=== PATIENT | female | born 1970 | race Caucasian/White ===

== ENCOUNTER 2017-02-20 05:51 | Inpatient (IN) | payer OTHER ==
[~2017-02-20] VITALS: Ht 149.9 cm; Wt 61.7 kg
[2017-02-20] VITALS (41 sets, daily range): BP systolic 93–137; BP diastolic 44–94; PULSE 76–102; RESP 12–19; Ht 149.9 cm; Wt 61.7 kg
[2017-02-20] MEDS ORDERED: CEFAZOLIN 2 GM/50 ML (PMX) 50 ML IVPB ONE (06:15)
[2017-02-20] MEDS ORDERED: LACTATED RINGER'S 1,000 ML IV* SCH (06:15)
[2017-02-20] MEDS ORDERED: LIDOCAINE 2% (SDV) 5 ML INJ ONE (06:51)
[2017-02-20] MEDS ORDERED: ROCURONIUM 50 MG INJ ONE (06:51)
[2017-02-20] MEDS ORDERED: MIDAZOLAM 1 MG/ML 2 ML INJ ONE ×2 (06:51→07:26)
[2017-02-20] MEDS ORDERED: PROPOFOL 20 ML ONE (06:51)
[2017-02-20] MEDS ORDERED: CEFAZOLIN 1 GM INJ ONE (06:54)
[2017-02-20] MEDS ORDERED: ALBUMIN HUMAN 5% 250 ML ONE (06:59)
[2017-02-20] MEDS ORDERED: FLUMAZENIL 0.5 MG INJ ONE (07:25)
[2017-02-20] MEDS ORDERED: morphine SULFATE/PF (10 MG/10 ML) INJ ONE (07:25)
[2017-02-20] MEDS ORDERED: METOCLOPRAMIDE 10 MG INJ ONE (07:26)
--- NOTE | 2017-02-20 07:33 | HP ---
Date/Time of Note Date/Time of Note DATE: 02/20/17 TIME: 07:28 Assessment/Plan VTE Prophylaxis VTE Prophylaxis Intervention: SCD's Lines/Catheters IV Catheter Type (from [facility]): Saline Lock Assessment/Plan Chief Complaint/Hosp Course 16 week size Fibroid Uterus Menorrhagia H/o Anemia Problems: Assessment/Plan Exploratory Laparotomy URI, Bilateral Salpingectomies Possible BSO Informed consent obtained HPI/ROS Admit Date/Time Admit Date/Time Feb 20, 2017 at 05:51 Hx of Present Illness patient with fibroid uterus and menorrhagia desires to have definitive surgery with hysterectomy. options of removing or retaining the ovaries d/w patient. the risk of future ovarian cancer which is 1 in 60 women d/w patient. she desires to retain her ovaries. Surgical risks including infection, bleeding, damage to other organs, blood transfusion d/w patient. Informed consent obtained. PMH: None PSH: BTL NKDA Meds: Fe Review of Systems: Constitutional: Denies nausea, vomiting, Fever, Chills, weight loss Eyes: denies pain, discharge or redness Nose: denies pain or bleeding Respiratory: denies SOB, cough or wheezing Cardiovascular: denies chest pain, palpitations or lightheadedness Gastrointestinal: Denies nausea, vomiting, blood in stool Genitourinary: Denies hematuria, dysuria, or flank pain Musculoskeletal: Denies joint pain or swelling Skin: Denies rash, erythema or laceration Neuro: Denies confusion, seizure, headache or diziness Endocrine: Denies excessive urination or drinking PMH/Family/Social Family History Significant Family History: no pertinent family hx Social History Alcohol Use: none Smoking Status: Never smoker Drug Use: none Exam/Review of Systems Vital Signs Vitals Vital Signs Date Time Temp Pulse Resp B/P Pulse Ox O2 Delivery O2 Flow Rate FiO2 02/20/17 06:16 97.4 87 18 137/53 98 Room Air Exam Constitutional: alert, oriented, well developed Psych: nl mood/affect, no complaints Head: atraumatic, normocephalic Eyes: EOMI, PERRL, fundi, disc, icteric, nl conjunctiva, nl lids, nl sclera, other ENMT: nl external ears & nose, nl lips & teeth, nl nasal mucosa & septum Neck: non-tender, supple Respiratory: clear to auscultation, normal air movement Cardiovascular: nl pulses, regular rate and rhythm Gastrointestinal: nl liver, spleen, non-tender, soft Musculoskeletal: nl extremities to inspection Extremities: normal pulses Neurological: TRANSPORT TRUCK DRIVER II-XII intact, nl mental status, nl speech, nl strength Skin: nl turgor, No rash or lesions Lymph: nl lymph nodes Medications Medications Current Medications Lactated Ringer's (Lr) 1,000 ml @ 125 mls/hr Q8H IV* ; Start 02/20/17 at 06:15 ; Stop 02/20/17 at 14:14 FORREST VILCHIS MD Feb 20, 2017 07:33
[2017-02-20 07:43] LABS: CALCIUM 8.9 mg/dl (8.4-10.2); CREATININE 0.66 mg/dl (0.44-1.00)
[2017-02-20] MEDS ORDERED: NALOXONE (0.4 MG/ML) INJ IV PRN ×2 (08:00→08:30)
[2017-02-20] MEDS ORDERED: ONDANSETRON 4 MG INJ IV PRN ×3 (08:00→08:30)
[2017-02-20] MEDS ORDERED: HYDROmorphONE 0.2 MG/ML PCA IV SCH (08:00)
[2017-02-20] MEDS ORDERED: DEXAMETHASONE 4 MG/ML 1 ML INJ ONE (08:12)
[2017-02-20] MEDS ORDERED: MEPERIDINE 25 MG INJ IV PRN (08:30)
[2017-02-20] MEDS ORDERED: DIPHENHYDRAMINE 50 MG INJ IV PRN ×2 (08:30)
[2017-02-20] MEDS ORDERED: HYDROmorphONE 0.5 MG/0.5 ML SYG IV PRN ×2 (08:30)
[2017-02-20] MEDS ORDERED: KETOROLAC 30 MG INJ IV PRN (08:30)
[2017-02-20] MEDS ORDERED: HYDROmorphONE (0.2 MG/ML) 10ML SYG IV PRN ×3 (08:30)
[2017-02-20] MEDS ORDERED: HYDROmorphONE 1 MG/ML SYG IV PRN (08:30)
[2017-02-20] MEDS ORDERED: METOCLOPRAMIDE 10 MG INJ IV PRN (08:30)
[2017-02-20] MEDS ORDERED: EPHEDrine SULFATE 50 MG/5 ML SYG ONE (09:21)
[2017-02-20] MEDS ORDERED: GLYCOPYRROLATE 0.4 MG INJ ONE (09:21)
[2017-02-20] MEDS ORDERED: KETOROLAC 30 MG INJ ONE (09:21)
[2017-02-20] MEDS ORDERED: NEOSTIGMINE 3 MG/3 ML SYRINGE ONE (09:21)
--- NOTE | 2017-02-20 09:47 | OPR ---
Date/Time of Note Date/Time of Note DATE: 02/20/17 TIME: 09:37 Operative Report Free Text/Dictation DATE OF OPERATION: 02/20/2017 PREOPERATIVE DIAGNOSIS: menorrhagia, 16 week size Fibroid Uterus, h/o severe anemia POSTOPERATIVE DIAGNOSIS: same PROCEDURE PERFORMED: Exploratory laparotomy, total abdominal hysterectomy SURGEON: Forrest Navarro MD PARARESCUE MANAGER: Keegan Gardner MD ESTIMATED BLOOD LOSS: 300 mL. COMPLICATIONS: None. FINDINGS: There were dense adhesions from the tubes to the ovaries. 16 weeks size uterus with several fibroids. one fibroid was in left broad ligament. INFORMED CONSENT: Please see my preop H and P for the consent process. The patient desires to retain her ovaries despite being at relative risk of future ovarian cancer which is 1 in 60 women. DESCRIPTION OF PROCEDURE: She was taken to the operating room. General anesthesia was induced. She was prepped and draped in the usual sterile fashion. Vaginal prep and abdominal prep was done. Camacho catheter was inserted. She was in the supine position. After she was prepped and draped, surgical time out was done, surgery and patient was identified. Then, we proceeded and made a Pfannenstiel skin incision. Incision was taken down in layers. The fascia was cut, undermined, from the underlying muscle using sharp and blunt dissection. All the bleeders were cauterized. We had to proceed with lysis of adhesions from the omentum to the anterior abdominal wall to get access to our surgical site, at all times protecting the bowel. We took down the adhesions and then an O'Arben-O'Nicole retractor was placed, 3 moist laparotomy packs were used to pack the bowel away. Two large Pian were used to grab the uterus. The right round ligament was coagulated twice using the LigaSure and then cut. Same procedure on the contralateral side. Then, we proceeded with developing a bladder flap using a Marlon and bladder was pushed down. A window was developed in the round ligament and the utero-ovarian pedicle on the right side was ligated using the LigaSure twice and then cut. There was no bleeding. Same procedure was done on contralateral side. Bladder flap was pushed further down and the right uterine artery pedicle was clamped, cut, suture ligated and the left side was clamped, cut, suture ligated. Clamping the uterine artery on the left side was difficult due to large left broad ligament fibroid. this fibroid was dissected off, but caused some bleeding from the retroperitoneal area. The bladder flap was pushed further down and the cardinal ligaments were clamped, cut, suture ligated using straight Toro clamps and the uterosacrals were clamped, cut, suture ligated. The vagina was entered using a knife and using Gaye scissors, the specimen was cut and sent to pathology. The vaginal apex on both sides was suture ligated and then interrupted sutures were used to place figure- of-eight sutures to close the cuff. there was some bleeding from the retroperitoneal space in the left side due to earlier removal of the fibroid. 2- 0 Chromic on SH was used to control the bleeding reassuring that the ureter was not harmed. We irrigated and then we filled the pelvis using warm water and there was absolutely no evidence of any bleeding from any our pedicles. Each pedicle was evaluated individually. The vaginal cuff was evaluated very carefully and there was no bleeding. At this time, the posterior peritoneum was closed using a 2-0 Vicryl and all laparotomy packs were removed. O'Arben-O'Nicole removed. I explored the abdomen, there were no laparotomy packs left inside. The peritoneum was closed using 2-0 Vicryl. The rectus muscles reapproximated using 2-0 Vicryl. Rectus muscles, rectus fascia were evaluated, all bleeders cauterized. Rectus fascia was closed using #1 Vicryl. Subcutaneous tissue was cleaned, irrigated, all bleeders cauterized and closed using 3-0 plain and then the skin closed using 4- 0 Monocryl in a subcuticular fashion. All counts were correct. The patient tolerated the procedure well. Procedure Date: Feb 20, 2017 Preoperative Diagnosis menorrhagia, 16 week size Fibroid Uterus, h/o severe anemia Postoperative Diagnosis menorrhagia, 16 week size Fibroid Uterus, h/o severe anemia Operation/Procedure Performed Exploratory laparotomy, total abdominal hysterectomy Surgeon see signature line Primary Teaching Assistant Dr. MS Gardner Anesthesia Type: general Estimated Blood Loss: other (300 ml) Transfusion none Specimen uterus and cervix Grafts/Implants none Complications none Pt Condition Post Procedure: stable Disposition: PACU Procedure Description see above FORREST NAVARRO MD Feb 20, 2017 09:46
[2017-02-20] MEDS: CEFAZOLIN 1 GM/50 ML (PMX) 50 ML IVPB SCH ×2 (15:23→23:45)
[2017-02-21 02:49] VITALS: BP 106/55; RESP 19
[2017-02-21 06:09] LABS: BASOPHILS % 0.2 % (0.0-2.0); EOSINOPHILS % 0.1 % (0.0-7.0); HEMOGLOBIN 10.5 g/dl (12.0-16.0); LYMPHOCYTES # 2.3 10^3/ul (0.8-2.9); LYMPHOCYTES % 21.5 % (15.0-51.0); MEAN CORPUSCULAR HEMOGLOBIN 26.9 pg (29.0-33.0); MEAN CORPUSCULAR HGB CONC 31.8 g/dl (32.0-37.0); MEAN CORPUSCULAR VOLUME 84.6 fl (82.0-101.0); MEAN PLATELET VOLUME 10.5 fl (7.4-10.4); MONOCYTE # 1.2 10^3/ul (0.3-0.9); MONOCYTES % 11.2 % (0.0-11.0); NEUTROPHIL # 7.2 10^3/ul (1.6-7.5); NEUTROPHILS % 66.5 % (39.0-77.0); PLATELET COUNT 286 10^3/UL (140-415); RED CELL DISTRIBUTION WIDTH 13.4 % (11.5-14.5); WHITE BLOOD COUNT 10.9 10^3/ul (4.8-10.8)
[2017-02-21 06:37] LABS: CALCIUM 8.4 mg/dl (8.4-10.2); CREATININE 0.63 mg/dl (0.44-1.00); POTASSIUM 4.3 mmol/L (3.5-5.1)
[2017-02-21 07:36] VITALS: BP 106/58; RESP 18
[2017-02-21] MEDS: HYDROCODONE/APAP (5/325) TAB PO PRN ×3 (09:00→19:39)
--- NOTE | 2017-02-21 09:42 | PN ---
Date/Time of Note Date/Time of Note DATE: 02/21/17 TIME: 09:40 Assessment/Plan VTE Prophylaxis VTE Prophylaxis Intervention: ambulation Lines/Catheters IV Catheter Type (from Nrsg): Saline Lock Urinary Cath still in place: No Subjective 24 Hr Interval Summary Free Text/Dictation anesthesia note: A 46 year female s/p hysterectomy under spinal duramorph, [place] POD#1 is doing well , no N/V. itching, back pain or irritation, headache, pain is controlled. care per surgery Exam/Review of Systems Vital Signs Vitals Vital Signs Date Time Temp Pulse Resp B/P Pulse Ox O2 Delivery O2 Flow Rate FiO2 02/21/17 07:36 97.7 89 18 106/58 98 02/20/17 12:30 Room Air 02/20/17 09:35 8.0 Intake and Output 02/20/17 02/20/17 02/21/17 15:00 23:00 07:00 Intake Total 1600 ml 50 ml 690 ml Output Total 500 ml 450 ml 2350 ml Balance 1100 ml -400 ml -1660 ml Results Result Diagram: 02/21/17 0422 02/21/17 0422 Results 24 hrs Laboratory Tests Test 02/21/17 04:22 White Blood Count 10.9 H Red Blood Count 3.90 L Hemoglobin 10.5 L Hematocrit 33.0 L Mean Corpuscular Volume 84.6 Mean Corpuscular Hemoglobin 26.9 L Mean Corpuscular Hemoglobin Concent 31.8 L Red Cell Distribution Width 13.4 Platelet Count 286 Mean Platelet Volume 10.5 H Neutrophils % 66.5 Lymphocytes % 21.5 Monocytes % 11.2 H Eosinophils % 0.1 Basophils % 0.2 Nucleated Red Blood Cells % 0.0 Neutrophils # 7.2 Lymphocytes # 2.3 Monocytes # 1.2 H Eosinophils # 0.0 Basophils # 0.0 Nucleated Red Blood Cells # 0.0 Sodium Level 138 Potassium Level 4.3 Chloride Level 104 Carbon Dioxide Level 26 Anion Gap 12 Blood Urea Nitrogen 15 Creatinine 0.63 Glucose Level 95 Calcium Level 8.4 Medications Medications Current Medications Acetaminophen/ Hydrocodone Bitart ([place] (5/325)) 1 tab Q4H PRN PO PAIN LEVEL 6 -10 Last administered on 02/21/17t 09:00; Admin Dose 1 TAB; Start 02/20/17 at 08:00 Ondansetron HCl (Zofran Inj) 4 mg Q6H PRN IV NAUSEA AND/OR VOMITING Last administered on 02/20/17t 16:19; Admin Dose 4 MG; Start 02/20/17 at 08:00 Naloxone HCl (Narcan) 0.2 mg PRN PRN IV DECREASED REPIRATORY RATE; Start 02/20 at 08:00 Miscellaneous Information 1. 24 hours after ESTIMATOR AND DRAFTER SUPERVISOR st... ESTIMATOR AND DRAFTER SUPERVISOR IV ; Start 02/20/17 at 08:00 HESHAM COELHO MD Feb 21, 2017 09:42
[2017-02-21 13:56] VITALS: BP 128/60; RESP 18
--- NOTE | 2017-02-21 17:23 | QN ---
Documentation Comment POD # 1 s/p URI S/ denies problems AF VSS Abdomen: soft, appropriate tender Incision: no sign of infection Doing Well plan: continue current care FORREST VILCHIS MD Feb 21, 2017 17:23
[2017-02-21 20:08] VITALS: BP 135/65; RESP 18
[2017-02-22 02:59] VITALS: BP 128/61; RESP 18
[2017-02-22] MEDS: HYDROCODONE/APAP (5/325) TAB PO PRN ×2 (04:41→14:41)
[2017-02-22 07:28] VITALS: BP 126/63; RESP 18
--- NOTE | 2017-02-22 11:44 | PN ---
Date/Time of Note Date/Time of Note DATE: 02/22/17 TIME: 11:38 Assessment/Plan Lines/Catheters IV Catheter Type (from Nrs): Saline Lock Camacho in Place (from Nrs): No Subjective 24 Hr Interval Summary February 22, 2017 Post abdominal hysterectomy date 2 This 47 years old lady had a total abdominal hysterectomy due to multiple and fairly large fibroid tumors. Today she is afebrile chest is clear Abdomen is soft Incision is clean No calf tenderness She is ambulatory Additional Comments Laboratory Tests Test 02/20/17 06:50 02/21/17 04:22 02/22/17 05:37 Sodium Level 143mmol/L 138mmol/L Potassium Level 4.0mmol/L 4.3mmol/L Chloride Level 108mmol/L 104mmol/L Carbon Dioxide Level 25mmol/L 26mmol/L Anion Gap 14 12 Blood Urea Nitrogen 15mg/dl 15mg/dl Creatinine 0.66mg/dl 0.63mg/dl Glucose Level 96mg/dl 95mg/dl Calcium Level 8.9mg/dl 8.4mg/dl White Blood Count 10.910^3/ul Red Blood Count 3.9010^6/ul Hemoglobin 10.5g/dl Hematocrit 33.0% Mean Corpuscular Volume 84.6fl Mean Corpuscular Hemoglobin 26.9pg Mean Corpuscular Hemoglobin Concent 31.8g/dl Red Cell Distribution Width 13.4% Platelet Count 07671^3/UL Mean Platelet Volume 10.5fl Neutrophils % 66.5% Lymphocytes % 21.5% Monocytes % 11.2% Eosinophils % 0.1% Basophils % 0.2% Nucleated Red Blood Cells % 0.0/100WBC Neutrophils # 7.210^3/ul Lymphocytes # 2.310^3/ul Monocytes # 1.210^3/ul Eosinophils # 0.010^3/ul Basophils # 0.010^3/ul Nucleated Red Blood Cells # 0.010^3/ul Lab Scanned Report [id number] Current Medications Medications (Trade) Dose Ordered Sig/Farzana Route PRN Reason Start Time Stop Time Status Last Admin Dose Admin Cefazolin Sodium/ Dextrose 50 ml @ 100 mls/hr ONCE ONCE IVPB 02/20/17 06:15 02/20/17 06:44 DC Lactated Ringer's (Lr) 1,000 ml @ 125 mls/hr Q8H IV* 02/20/17 06:15 02/20/17 14:14 DC Lidocaine 100 mg 100 mg STK-MED ONCE .ROUTE 02/20/17 06:51 02/20/17 06:52 DC Propofol (Diprivan) 20 ml @ ud STK-MED ONCE .ROUTE 02/20/17 06:51 02/20/17 06:52 DC Rocuronium [place] 50 mg 50 mg STK-MED ONCE .ROUTE 02/20/17 06:51 02/20/17 06:52 DC Fentanyl (Sublimaze) 5 ml @ ud STK-MED ONCE .ROUTE 02/20/17 06:51 02/20/17 06:52 DC Midazolam HCl (Versed) 2 mg STK-MED ONCE .ROUTE 02/20/17 06:51 02/20/17 06:52 DC Cefazolin Sodium 1 gm 1 gm STK-MED ONCE .ROUTE 02/20/17 06:54 02/20/17 06:55 DC Albumin Human 250 ml @ ud STK-MED ONCE .ROUTE 02/20/17 06:59 02/20/17 07:00 DC Morphine Sulfate (Duramorph) 10 mg STK-MED ONCE .ROUTE 02/20/17 07:25 02/20/17 07:26 DC Flumazenil (Romazicon) 0.5 mg STK-MED ONCE .ROUTE 02/20/17 07:25 02/20/17 07:26 DC Midazolam HCl (Versed) 2 mg STK-MED ONCE .ROUTE 02/20/17 07:26 02/20/17 07:27 DC Metoclopramide HCl 10 mg 10 mg STK-MED ONCE .ROUTE 02/20/17 07:26 02/20/17 07:27 DC Cefazolin Sodium (Ancef 1 Gm/50 ml (Pmx)) 50 ml @ 100 mls/hr Q8H IVPB 02/20/17 08:00 02/21/17 00:29 DC 02/20/17 23:45 Acetaminophen/ Hydrocodone Bitart ([place] (5/325)) 1 tab Q4H PRN PO PAIN LEVEL 6-10 02/20/17 08:00 02/22/17 04:41 Ondansetron HCl (Zofran Inj) 4 mg Q6H PRN IV NAUSEA AND/OR VOMITING 02/20/17 08:00 02/20/17 16:19 Naloxone HCl (Narcan) 0.2 mg PRN PRN IV DECREASED REPIRATORY RATE 02/20/17 08:00 Hydromorphone HCl (Dilaudid MARKETING INFORMATION ANALYST) Q4PCA IV 02/20/17 08:00 02/20/17 11:36 DC Miscellaneous Information 1. 24 hours after MARKETING INFORMATION ANALYST st... MARKETING INFORMATION ANALYST IV 02/20/17 08:00 Dexamethasone (Decadron) 4 mg STK-MED ONCE .ROUTE 02/20/17 08:12 02/20/17 08:13 DC Hydromorphone HCl (Dilaudid (Rec)) 0.2 mg PACU ORDER PRN IV MILD PAIN LEVEL 1-3 02/20/17 08:30 02/20/17 13:00 DC Hydromorphone HCl (Dilaudid (Rec)) 0.4 mg PACU ORDER PRN IV MODERATE PAIN LEVEL 4-6 02/20/17 08:30 02/20/17 13:00 DC Hydromorphone HCl (Dilaudid (Rec)) 0.6 mg PACU ORDER PRN IV SEVERE PAIN LEVEL 7-10 02/20/17 08:30 02/20/17 13:00 DC Ondansetron HCl (Zofran Inj) 4 mg PACU ORDER PRN IV NAUSEA AND/OR VOMITING 02/20/17 08:30 02/20/17 13:00 DC Metoclopramide HCl (Reglan) 10 mg PACU ORDER PRN IV NAUSEA AND/OR VOMITING 02/20/17 08:30 02/20/17 13:00 DC Meperidine HCl (Demerol) 25 mg PACU ORDER PRN IV POST-OP RIGORS 02/20/17 08:30 02/20/17 13:00 DC Diphenhydramine HCl (Benadryl) 25 mg PACU ORDER PRN IV PRURITUS 02/20/17 08:30 02/20/17 13:00 DC Glycopyrrolate (Robinul) 0.4 mg STK-MED ONCE .ROUTE 02/20/17 09:21 02/20/17 09:22 DC Ephedrine Sulfate 50 mg STK-MED ONCE .ROUTE 02/20/17 09:21 02/20/17 09:22 DC Neostigmine Methylsulfate (Neostigmine) 3 mg STK-MED ONCE .ROUTE 02/20/17 09:21 02/20/17 09:22 DC Ketorolac Tromethamine (Toradol) 30 mg STK-MED ONCE .ROUTE 02/20/17 09:21 02/20/17 09:22 DC Naloxone HCl (Narcan) 0.1 mg Q2M PRN IV FOR RESP RATE 8 OR LESS 02/20/17 08:30 02/21/17 08:29 DC Ketorolac Tromethamine (Toradol) 30 mg Q6H PRN IV PAIN 02/20/17 08:30 02/21/17 08:29 DC Hydromorphone HCl (Dilaudid) 1 mg Q3H PRN IV BREAKTHROUGH PAIN 02/20/17 08:30 02/21/17 08:29 DC Hydromorphone HCl (Dilaudid) 0.2 mg Q3H PRN IV PAIN LEVEL 1-5 02/20/17 08:30 02/21/17 08:29 DC Hydromorphone HCl (Dilaudid) 0.4 mg Q3H PRN IV PAIN LEVEL 6-10 02/20/17 08:30 02/21/17 08:29 DC Diphenhydramine HCl (Benadryl) 25 mg Q6H PRN IV ITCHING 02/20/17 08:30 02/21/17 08:29 DC Ondansetron HCl (Zofran Inj) 4 mg Q6H PRN IV NAUSEA AND/OR VOMITING 02/20/17 08:30 02/21/17 08:29 DC She is tolerating food and will advance her diet to regular No bowel movement yet but will give laxative. Exam/Review of Systems Vital Signs Vitals Vital Signs Date Time Temp Pulse Resp B/P Pulse Ox O2 Delivery O2 Flow Rate FiO2 02/22/17 07:28 98.2 89 18 126/63 96 02/20/17 12:30 Room Air 02/20/17 09:35 8.0 Intake and Output 02/21/17 02/21/17 02/22/17 15:00 23:00 07:00 Intake Total 300 ml Balance 300 ml Results Result Diagram: 02/21/1742102/21/17421 MARTIN DUNLAP MD Feb 22, 2017 11:44
[2017-02-22 14:24] VITALS: BP 125/68; RESP 18
[2017-02-22 20:34] VITALS: BP 121/63; RESP 18
[2017-02-23 02:51] VITALS: BP 129/64; RESP 18
[2017-02-23] MEDS: HYDROCODONE/APAP (5/325) TAB PO PRN (06:09)
[2017-02-23 08:00] VITALS: BP 116/58; RESP 19
[2017-02-23] MEDS ORDERED: BISACODYL 10 MG SUPP PR ONE (11:30)
[2017-02-23] MEDS ORDERED: BISACODYL (EC) 5 MG TAB PO ONE (11:30)
[2017-02-23 14:00] VITALS: BP 126/67; RESP 19
--- NOTE | 2017-02-24 01:59 | DS ---
DATE OF ADMISSION: 02/20/2017 DATE OF DISCHARGE: 02/23/2017 FINAL DIAGNOSIS: Status post total abdominal hysterectomy. HISTORY AND HOSPITAL COURSE: The patient is a 46-year-old who presented on 02/20/2017 for explorato ry laparotomy and a URI which she underwent without any complications. EBL was 300. Patient histor y of fibroids and severe menorrhagia and severe anemia. The patient is postop day #3 now doing well , tolerating p.o., is ambulating, is passing gas, has had a bowel movement. Hemoglobin postoperativ e was 10.5. VITAL SIGNS: All within normal limits. HEART: Regular rhythm. CHEST: Clear to auscultation bilaterally. ABDOMEN: Soft, nontender. No rebound or guarding. EXTREMITIES: There is no edema. SKIN: Wound is clean, dry and intact. DISPOSITION: The patient will be discharged. The patient will be discharged to home. DISCHARGE INSTRUCTIONS: Follow up with Dr. Navarro in 2 weeks. ER precautions were given. CONDITION: The patient is stable upon discharge. Dictated By: TUCKER ROSA/ANNELIESE Conf#: [id number] DID#: [id number]
== END 2017-02-23 16:04 | disposition home or self-care (01) | DRG 743 ==
LOC: REC 05:51 → PP2 13:37
PROVIDERS: ADMIT Specialist; ATTEND Specialist
PROC: 0UT90ZZ Resection of Uterus, Open Approach (ICD-10-PCS; principal; 2017-02-20 07:30)
DX: D25.1 Intramural leiomyoma of uterus (principal); D25.2 Subserosal leiomyoma of uterus; N92.0 Excessive and frequent menstruation with regular cycle
CPT/HCPCS: 80048; 85025; 86850; 86900; 86901; 87086; 88305; J0690; J1100; J1885; J2250; J2274; J2405; J2710; J2765; J3010; P9045